=== PATIENT | male | born 2000 | race Two or more races ===

== ENCOUNTER 2023-03-07 15:52 | Emergency (ER) | payer OTHER ==
[~2023-03-07] VITALS: Ht 188 cm; Wt 99.8 kg
[2023-03-07 17:58] LABS: HEMATOCRIT 46.2 % (39.0-48.0); HEMOGLOBIN 15.7 g/dL (13-16.00); MEAN CELL VOLUME 85.9 fL (80.0-100.00); MEAN CORPUSCULAR HEMOGLOBIN 29.1 pg (27.00-32.0); MEAN CORPUSCULAR HGB CONC 33.9 g/dl (32.0-36.0); PLATELET COUNT 212 K/uL (150-450); RED BLOOD COUNT 5.37 M/uL (4.00-6.00); RED CELL DISTRIBUTION WIDTH 12.4 % (11.5-14.5)
[2023-03-07 18:21] LABS: ALBUMIN 4.5 gm/dL (3.4-5.0); BILIRUBIN TOTAL 1.52 mg/dL (0.3-1.2); CALCIUM 9.8 mg/dL (8.5-10.1); CREATININE SERUM 1.27 mg/dL (0.70-1.30); GFR 72.3; GLOBULINA 3.4 G/DL (2.4-3.5); POTASSIUM 3.68 mEq/L (3.5-5.1); TOTAL PROTEIN 7.9 gm/dL (6.4-8.2)
== END 2023-03-08 00:07 | disposition home or self-care (01) ==
LOC: ER 15:53 → EMR PED 15:53
PROVIDERS: Emergency Medicine
DX: R11.10 Vomiting, unspecified (principal)